=== PATIENT | female | born 2000 | race Caucasian/White ===

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

== ENCOUNTER 2021-05-30 20:34 | Emergency (ER) | payer BC, SELFPAY ==
[2021-05-30 20:40] VITALS: BP 144/87; PULSE 80; RESP 18; TEMP 36.9; O2SAT 96
--- NOTE | 2021-05-30 20:47 | W.ED.GENAD ---
Discharge Plan Disposition Patient Disposition: HOME Condition: Stable Discharge Details Clinical Impression: Nausea and vomiting Primary Care Provider: None,None ED Provider: Ehsan Mcintosh Home Meds and New Rx's Prescriptions: New ondansetron 4 mg tablet,disintegrating 4 mg PO Q8H PRN (Reason: nausea and vomiting) Qty: 30 RF: 0 capsaicin 0.1 % cream 1 applic topical TID Qty: 60 RF: 0 Continued Nexplanon 68 MG implant 68 mg SQ ONCE Qty: 1 RF: 0 acyclovir 400 mg Tablet 400 mg PO BID RF: 0 Discharge Instructions Instructions: Acute Nausea and Vomiting (ED) Additional Instructions: your blood work did not show any concerning findings your symptoms could be from the marijuana use and trying to stop using marijuana should help follow up with your primary care provider within 1 week especially if symptoms continue if you feel more ill, have severe worsening pain or persistent vomit return to the emergency department Medical Decision Making 21 yo female with no chronic medical problems, states she does use marijuana almost daily, comes in with nausea with vomit throughout the day. she states every few months she has periods with n/v but usually lasts a few hours. She denies other drug use and denies any chest or abdominal pain. She is stable on arrival intermittently dry heaving. She has a soft nontender abdomen. I suspect her symptoms are due to the marijuana use, will evaluate for electrolyte abnormalities and rehydrate, and treat with zofran and capsaicin cream. Will also check hcg. Given lack of abdominal pain and no tenderness anywhere on exam doubt surgical pathology and do not feel ct indicated. labs unremarkable, she feels mildly improved with zofran unfortunately we do not have any capsaicin left to try for her. She still has no abdominal tenderness and she is requesting d/c which I feel is reasonable given reassuring exam and labs. Advised to try and stop using marijuana and return precautions given Differential Diagnosis Differential Diagnosis: cannabinoid hyperemesis, cyclic vomit, electrolyte abnormality Lab Data Lab results reviewed: Yes I reviewed the patient's lab results. HPI General Mode of arrival: ambulatory. Date/Time Provider Initiated Documentation: 05/30/21 20:37. Limitations to Documentation: no limitations. Information obtained by: patient. History of Present Illness 21 year old F presents to the emergency department with the chief complaint of nausea and vomit, described as moderate, Patient started experiencing this day(s) (1) and it has been constant. No relieving factors improve symptom(s), No exacerbating factors reported . Patient notes no other symptoms.. Patient did receive the following treatments prior to arrival, none Related Data Home Medications Medication Instructions Recorded Confirmed Nexplanon 68 mg SQ ONCE #1 implant 02/28/17 05/30/21 acyclovir 400 mg PO BID 12/18/18 05/30/21 capsaicin 1 applic TOPICAL TID #60 g 05/30/21 ondansetron 4 mg PO Q8H PRN #30 tab 05/30/21 Previous Rx's Medication Instructions Recorded capsaicin 1 applic TOPICAL TID #60 g 05/30/21 ondansetron 4 mg PO Q8H PRN #30 tab 05/30/21 Allergies Allergy/AdvReac Type Severity Reaction Status Date / Time No Known Allergies Allergy Verified 05/30/21 20:42 General Stated Complaint: Nausea/Vomit/Diar PHILIPPE: 4 Review of Systems All systems reviewed & are unremarkable except as noted in HPI and below Constitutional Constitutional: Denies chills, Denies fever(s) and Denies weakness Cardiovascular Cardiovascular: Denies chest pain and Denies dyspnea Respiratory Respiratory: Denies cough and Denies dyspnea Gastrointestinal Gastrointestinal: Denies abdominal pain Musculoskeletal Musculoskeletal: Denies joint swelling Neurologic Neurologic: Denies weakness [facility] Active Problem List (Updated 05/30/21 @ 22:03 by Ehsan Mcintosh MD) Nausea and vomiting (Acute) UTI (urinary tract infection), uncomplicated (Acute) S/P ACL repair (Chronic) Presence of subdermal contraceptive device (Chronic 09/02/19) Acute gastroenteritis (Acute) Rupture of anterior cruciate ligament of right knee (Acute 09/17/17) Routine sports examination for healthy child or adolescent (Acute 01/20/16) Body mass index (BMI) of 5th to 84th percentile for age in childhood (Acute 02/28/17) Acute pain of right knee (Acute 08/06/17) Family History Mother No problems noted. Father No problems noted. Social History Smoking/Tobacco Use Status: Current every day Tobacco Type: e-cigarettes Smoking risk assessment performed?: Yes Alcohol Intake: never Drug use: Never Substance use type: does not use Do you feel safe at home: Yes Do you feel safe in your relationship?: Yes Exam Const General: no acute distress Orientation: alert HENMT Head: normal to inspection Ears: external ears normal General nose exam: external nose normal Mouth: moist mucous membranes Eyes General: appearance normal, both eyes and all related structures Neck Neck: normal visual inspection Resp Effort & Inspection: normal respiratory effort and able to speak in complete sentences Cardio Rate: regular rate GI Palpation: soft and nontender Skin General skin exam: no rashes or lesions noted Neuro General: patient alert and patient oriented x3 Extrem General: normal to inspection Psych Mental Status: mental status grossly normal Course Vital Signs Vital signs: Vital Signs Temperature 36.9 C 05/30/21 20:40 Pulse 80 05/30/21 20:40 Respiratory Rate 18 05/30/21 20:40 Blood Pressure 144/87 H 05/30/21 20:40 Pulse Oximetry 96 05/30/21 20:40 Temperature 36.9 C 05/30/21 20:40 Pulse 80 05/30/21 20:40 Respiratory Rate 18 05/30/21 20:40 Respiratory Effort Non-Labored 05/30/21 20:42 Blood Pressure 144/87 H 05/30/21 20:40 Blood Pressure Position Sitting 05/30/21 20:40 Pulse Oximetry 96 05/30/21 20:40 Oxygen Delivery Method Room Air 05/30/21 20:40 Oxygen Flow Rate 0 05/30/21 20:40
[2021-05-30] MEDS: Normal Saline 1,000 ML 1000 ML IV (21:15)
[2021-05-30] MEDS: Ondansetron 4 MG/2 ML VIAL IVP (21:22)
[2021-05-30 21:23] LABS: Abs Immature Grans 0.04 10^3/uL (0.0-0.06); Absolute Basophil Count 0.06 10^3/uL (0.0-0.2); Absolute Lymphocyte Count 0.73 10^3/uL (1.2-3.4); Absolute Monocyte Count 0.33 10^3/uL (0.1-0.8); Absolute Neutrophil Count 9.93 10^3/uL (1.2-6.7); Basophils % 0.5; HCT 40.2 % (36.0-46.0); HGB 13.1 g/dL (11.2-15.7); Immature Grans % 0.4; Lymphocytes % 6.6; MCH 30.3 pg (27.0-33.0); MCHC 32.6 % (32.0-36.0); MCV 93.1 fL (80-95); MPV 9.7 fL (8.0-11.0); Neutrophils % 89.5; Nucleated RBC 0 %; Platelet Count 319 10^3/uL (130-400); RBC 4.32 10^6/uL (3.93-5.22); RDW 12.7 % (11.7-14.6); RDW-SD 43.9 fL; WBC 11.09 10^3/uL (4.4-10.8)
[2021-05-30 21:49] LABS: ALT 22 U/L (14-59); AST 24 U/L (15-37); Albumin 5.1 g/dL (3.4-5.0); Alkaline Phosphatase 44 U/L (46-116); Anion Gap 11.7 mmol/L (3-11); BUN 10 mg/dL (7-18); Bilirubin, Total 0.5 mg/dL (0.2-1.0); CO2 25.3 mmol/L (21.0-32.0); CREATININE 0.7 mg/dL (0.55-1.02); Calcium 9.8 mg/dL (8.5-10.1); Chloride 103 mmol/L (98-107); Glucose 138 mg/dL (74-106); Magnesium 1.9 mg/dL (1.8-2.4); Sodium 140 mmol/L (136-145)
[2021-05-30 21:51] LABS: HCG Quant, Pregnancy < 1 mIU/mL (1-3)
[2021-05-30 21:57] LABS: Lipase 36 U/L (73-393)
[2021-05-30 22:17] VITALS: BP 144/87; PULSE 80; RESP 18; TEMP 36.9; O2SAT 96
== END 2021-05-30 22:10 | disposition home or self-care (01) ==
PROVIDERS: Emergency Provider Emergency Medicine
DX: R11.2 Nausea with vomiting, unspecified (principal); F12.90 Cannabis use, unspecified, uncomplicated
CPT/HCPCS: 36415; 80053; 83690; 96361; 96374; 99284; 83735; 84702; 85025; 99283; J2405

== ENCOUNTER 2022-02-10 13:36 | Emergency (ER) | payer BC, SELFPAY ==
[2022-02-10 13:40] VITALS: BP 140/84; PULSE 104; RESP 16; TEMP 37.2; O2SAT 97
[2022-02-10 14:41] LABS: Abs Immature Grans 0.04 10^3/uL (0.0-0.06); Absolute Basophil Count 0.03 10^3/uL (0.0-0.2); Absolute Lymphocyte Count 0.91 10^3/uL (1.2-3.4); Absolute Monocyte Count 0.75 10^3/uL (0.1-0.8); Absolute Neutrophil Count 9.23 10^3/uL (1.2-6.7); Basophils % 0.3; HCT 40.5 % (36.0-46.0); HGB 14.2 g/dL (11.2-15.7); Immature Grans % 0.4; Lymphocytes % 8.3; MCH 31.3 pg (27.0-33.0); MCHC 35.1 % (32.0-36.0); MCV 89 fL (80-95); MPV 9.2 fL (8.0-11.0); Monocytes % 6.8; Neutrophils % 84.2; Platelet Count 333 10^3/uL (130-400); RBC 4.54 10^6/uL (3.93-5.22); RDW 12.4 % (11.7-14.6); RDW-SD 40.7 fL; WBC 10.96 10^3/uL (4.4-10.8)
--- NOTE | 2022-02-10 14:47 | W.ED.GENAD ---
Discharge Plan Disposition Patient Disposition: HOME Condition: Improving Discharge Details Clinical Impression: Nausea and vomiting, Cannabinoid hyperemesis syndrome Primary Care Provider: RIAN ARIAS ED Provider: John Rider Home Meds and New Rx's Prescriptions: Continued Nexplanon 68 MG implant 68 mg SQ ONCE Qty: 1 Label Comments: 2017- followed by [facility]. Thanh,RN acyclovir 400 mg Tablet 400 mg PO BID ondansetron 4 mg tablet,disintegrating 4 mg PO Q8H PRN (Reason: nausea and vomiting) Qty: 30 0RF capsaicin 0.1 % cream 1 applic topical TID Qty: 60 0RF Rx Instructions: do not wash area for at least 30 min after application Discharge Instructions Instructions: Acute Nausea and Vomiting (ED) Additional Instructions: Take Zofran as needed for nausea and vomiting Refrain from marijuana use as it can exacerbate your symptoms Return earlier should you have new or worsening complaints Clear liquids and advance to bland diet as tolerated Discharge Data Discharge Date/Time-TO BE ENTERED AT DEPARTURE: 02/10/22 16:54 Medical Decision Making <KATLYN Laughlin - Last Filed: 02/14/22 16:27> Patient appears well, will check labs, give Zofran, and capsaicin cream, 1 L of normal saline and reassess Gap of 13.9, likely dehydration induced, potassium and mag within normal limits Will order 2 L of normal saline and sign out to John Rider pending reassessment Medical Records Medical records reviewed: Yes I reviewed the patient's medical records. Lab Data Lab results reviewed: Yes I reviewed the patient's lab results. <KATLYN Vizcarra - Last Filed: 02/10/22 16:39> Patient appears well, will check labs, give Zofran, and capsaicin cream, 1 L of normal saline and reassess Gap of 13.9, likely dehydration induced, potassium and mag within normal limits Will order 2 L of normal saline and sign out to John Rider pending reassessment 1530 John Rider PA-c I assumed care of this 22-year-old female from my colleague KATLYN Davis, please see her initial HPI and examination. At this time work-up completed, patient has responded well to Zofran and capsaicin cream and is receiving IV fluid. Anion gap slightly elevated at 13.9. Working diagnosis of cannabinoid hyperemesis. Patient received a total of 2 L IV fluid. Is tolerating p.o. intake without difficulty. Patient reports feeling well and is requesting to be discharged home. No active vomiting while under my care. Abdomen is soft, nontender. She is hemodynamically stable and I see no clear indication to repeat laboratory values progress time as her anion gap is only minimally elevated. Standard discharge and return precautions were provided. Patient understands, is agreeable to this plan, and has no additional questions or concerns upon discharge. This documentation was generated using [employer] system, please disregard any oddities of phrase or misspellings. Medical Records Medical records reviewed: Yes I reviewed the patient's medical records. Lab Data Lab results reviewed: Yes I reviewed the patient's lab results. Labs: Laboratory Tests Range/Units 02/10/22 02/10/22 14:30 14:30 WBC (4.4-10.8) 10^3/uL 10.96 H RBC (3.93-5.22) 10^6/uL 4.54 Hgb (11.2-15.7) g/dL 14.2 Hct (36.0-46.0) % 40.5 MCV (80-95) fL 89 MCH (27.0-33.0) pg 31.3 MCHC (32.0-36.0) % 35.1 RDW (11.7-14.6) % 12.4 Plt Count (130-400) 10^3/uL 333 MPV (8.0-11.0) fL 9.2 Immature Gran % 0.4 Neutrophils % 84.2 Lymphocytes % 8.3 Monocytes % 6.8 Eosinophils % 0.0 Basophils % 0.3 Nucleated RBC % (0.0-0.3) % 0.0 Absolute Neutrophils (1.2-6.7) 10^3/uL 9.23 H Absolute Lymphocytes (1.2-3.4) 10^3/uL 0.91 L Absolute Monocytes (0.1-0.8) 10^3/uL 0.75 Absolute Eosinophils (0.0-0.7) 10^3/uL 0.00 Absolute Basophils (0.0-0.2) 10^3/uL 0.03 Sodium (136-145) mmol/L 142 Potassium (3.5-5.1) mmol/L 3.6 Chloride (98-107) mmol/L 102 Carbon Dioxide (21.0-32.0) mmol/L 26.1 Anion Gap (3-11) mmol/L 13.9 H BUN (7-18) mg/dL 20 H Creatinine (0.55-1.02) mg/dL 0.8 Estimated GFR/1.73 m2 (mL/min/1.73m2) >= 60.00 Glucose (74-106) mg/dL 118 H Calcium (8.5-10.1) mg/dL 9.6 Magnesium (1.8-2.4) mg/dL 1.9 Total Bilirubin (0.2-1.0) mg/dL 0.5 AST (15-37) U/L 25 ALT (14-59) U/L 18 Alkaline Phosphatase (46-116) U/L 44 L Total Protein (6.4-8.2) g/dL 8.4 H Albumin (3.4-5.0) g/dL 5.1 H Lipase (73-393) U/L 26 HPI <KATLYN Laughlin - Last Filed: 02/14/22 16:27> General Date/Time Provider Initiated Documentation: 02/10/22 14:04. HPI Narrative: This 22-year-old female with history of cannabinoid hyperemesis presents with reports of vomiting for the past 3 days. She had a similar episode few months ago and was treated in [place] at that time. She denies any abdominal pain, chance of , fever or chills. She denies any chest pain or shortness of breath. She states her symptoms are similar to her prior episodes. She denies any blood in her vomitus. Denies any diarrhea. Has not attempted any oral antiemetics and did not have capsaicin cream. Related Data Home Medications Medication Instructions Recorded Confirmed etonogestrel 68 mg subdermal 68 mg SQ ONCE #1 implant 02/28/17 05/30/21 implant (Nexplanon) acyclovir 400 mg tablet 400 mg PO BID 12/18/18 05/30/21 capsaicin 0.1 % topical cream 1 applic topical TID #60 grams 05/30/21 ondansetron 4 mg disintegrating 4 mg PO Q8H PRN nausea and 05/30/21 tablet vomiting #30 tabs Previous Rx's Medication Instructions Recorded capsaicin 0.1 % topical cream 1 applic topical TID #60 grams 05/30/21 ondansetron 4 mg disintegrating 4 mg PO Q8H PRN nausea and 05/30/21 tablet vomiting #30 tabs Allergies Allergy/AdvReac Type Severity Reaction Status Date / Time No Known Allergies Allergy Verified 02/10/22 13:46 General Stated Complaint: Nausea/Vomit/Diar PHILIPPE: 3 Review of Systems <KATLYN Laughlin - Last Filed: 02/14/22 16:27> All systems reviewed & are unremarkable except as noted in HPI and below PFSH <KATLYN Laughlin - Last Filed: 02/14/22 16:27> All Active Problems (Updated 02/10/22 @ 15:20 by KATLYN Laughlin) Nausea and vomiting (Acute) Cannabinoid hyperemesis syndrome (Acute) UTI (urinary tract infection), uncomplicated (Acute) S/P ACL repair (Chronic) Presence of subdermal contraceptive device (Chronic 09/02/19) Acute gastroenteritis (Acute) Rupture of anterior cruciate ligament of right knee (Acute 09/17/17) Routine sports examination for healthy child or adolescent (Acute 01/20/16) Body mass index (BMI) of 5th to 84th percentile for age in childhood (Acute 02/28/17) Acute pain of right knee (Acute 08/06/17) Family History Mother No problems noted. Father No problems noted. Social History Smoking/Tobacco Use Status: Current every day Tobacco Type: e-cigarettes Smoking risk assessment performed?: Yes Alcohol Intake: never Drug use: Never Substance use type: marijuana Do you feel safe at home: Yes Do you feel safe in your relationship?: Yes Exam <KATLYN Laughlin - Last Filed: 02/14/22 16:27> Const General: cooperative, comfortable and no acute distress Resp Effort & Inspection: normal respiratory effort Auscultation: clear to auscultation bilaterally Cardio Rate: regular rate Rhythm: regular rhythm GI Inspection: normal to inspection Other: Nontender abdominal exam Skin General skin exam: no rashes or lesions noted Neuro General: patient alert and patient oriented x3 Extrem Other: Distal pulses intact Course <KATLYN Laughlin - Last Filed: 02/14/22 16:27> Vital Signs Vital signs: Vital Signs Temperature 37.2 C 02/10/22 13:40 Pulse 104 H 02/10/22 13:40 Respiratory Rate 16 02/10/22 13:40 Blood Pressure 140/84 02/10/22 13:40 Pulse Oximetry 97 02/10/22 13:40 Temperature 37.2 C 02/10/22 13:40 Temperature Source Skin 02/10/22 13:40 Pulse 104 H 02/10/22 13:40 Respiratory Rate 16 02/10/22 13:40 Respiratory Effort 02/10/22 13:44 Blood Pressure 140/84 02/10/22 13:40 Blood Pressure Position Sitting 02/10/22 13:40 Pulse Oximetry 97 02/10/22 13:40 Oxygen Delivery Method Room Air 02/10/22 13:40 Oxygen Flow Rate 0 02/10/22 13:40 Pain Level 0 02/10/22 13:40 Lab/Test Results Lab/Test Results: Laboratory Tests Range/Units 02/10/22 14:30 WBC (4.4-10.8) 10^3/uL 10.96 H RBC (3.93-5.22) 10^6/uL 4.54 Hgb (11.2-15.7) g/dL 14.2 Hct (36.0-46.0) % 40.5 MCV (80-95) fL 89 MCH (27.0-33.0) pg 31.3 MCHC (32.0-36.0) % 35.1 RDW (11.7-14.6) % 12.4 Plt Count (130-400) 10^3/uL 333 MPV (8.0-11.0) fL 9.2 Immature Gran % 0.4 Neutrophils % 84.2 Lymphocytes % 8.3 Monocytes % 6.8 Eosinophils % 0.0 Basophils % 0.3 Nucleated RBC % (0.0-0.3) % 0.0 Absolute Neutrophils (1.2-6.7) 10^3/uL 9.23 H Absolute Lymphocytes (1.2-3.4) 10^3/uL 0.91 L Absolute Monocytes (0.1-0.8) 10^3/uL 0.75 Absolute Eosinophils (0.0-0.7) 10^3/uL 0.00 Absolute Basophils (0.0-0.2) 10^3/uL 0.03 Sign Out <KATLYN Laughlin - Last Filed: 02/14/22 16:27> Sign Out Data: Sign Out Comment: pending 2nd LR, poc chal and dc Last updated by Jaja Davis PA at 02/10/22 15:39 PAWSS <KATLYN Laughlin - Last Filed: 02/14/22 16:27> Have you Been Recently Intoxicated or Drunk Within the Last 30 days?: No Have you Ever Experienced Previous Episodes of Alcohol Withdrawal?: No Have you ever Experienced Withdrawal Seizures?: No Have you ever Experienced Delirium Tremens(DT)s?: No Have you ever undergone Alcohol Rehabilitation Treatment (i.e, inpt ot outpatient treatment programs)?: No Have you ever Experienced Blackouts?: No Have you ever Combined Alcohol with any other Substance of Abuse during the last 90 days?: No Positive Blood Alcohol level on Presentation? [PCS.BAL]: No Evidence of Increased Autonomic Activity (i.e. HR>120, tremor, sweating, agitation, nausea)?: No Result: 0 <KATLYN Vizcarra - Last Filed: 02/10/22 16:39> Result: 0
[2022-02-10] MEDS: Lactated Ringers 1,000 ML 1000 ML IV ×2 (14:54→15:59)
[2022-02-10] MEDS: Ondansetron 4 MG/2 ML VIAL IVP (14:54)
[2022-02-10 15:20] LABS: ALT 18 U/L (14-59); AST 25 U/L (15-37); Albumin 5.1 g/dL (3.4-5.0); Alkaline Phosphatase 44 U/L (46-116); Anion Gap 13.9 mmol/L (3-11); BUN 20 mg/dL (7-18); Bilirubin, Total 0.5 mg/dL (0.2-1.0); CO2 26.1 mmol/L (21.0-32.0); CREATININE 0.8 mg/dL (0.55-1.02); Calcium 9.6 mg/dL (8.5-10.1); Chloride 102 mmol/L (98-107); Glucose 118 mg/dL (74-106); Lipase 26 U/L (73-393); Magnesium 1.9 mg/dL (1.8-2.4); Potassium 3.6 mmol/L (3.5-5.1); Sodium 142 mmol/L (136-145); Total Protein 8.4 g/dL (6.4-8.2)
[2022-02-10 15:34] VITALS: BP 131/74; PULSE 77; TEMP 36.6; O2SAT 98
[2022-02-10 16:45] VITALS: BP 113/69; TEMP 37.1; O2SAT 97
== END 2022-02-10 16:54 | disposition home or self-care (01) ==
PROVIDERS: Physician Assistant; Emergency Provider Physician Assistant; PCP Nurse Practitioner Family
DX: R11.2 Nausea with vomiting, unspecified (principal); F12.90 Cannabis use, unspecified, uncomplicated; F17.290 Nicotine dependence, other tobacco product, uncomplicated; R79.89 Other specified abnormal findings of blood chemistry
CPT/HCPCS: 36415; 80053; 81025; 83690; 96361; 96374; 99284; 83735; 85025; J2405

== ENCOUNTER 2022-10-18 15:15 | Outpatient (REF) | payer BC, SELFPAY ==
[2022-10-20 14:12] LABS: Chlamydia Result Negative (Negative); GC Result Negative (Negative)
== END 2022-10-18 15:16 | disposition home or self-care (01) ==
LOC: LBN 15:15
PROVIDERS: PCP Nurse Practitioner Family; Visit Provider Nurse Practitioner Women's Health
DX: Z11.3 Encounter for screening for infections with a predominantly sexual mode of transmission (principal)
CPT/HCPCS: 87491; 87591

== ENCOUNTER 2022-11-22 12:57 | Outpatient (REF) | payer BC, SELFPAY ==
--- NOTE | 2022-11-22 12:50 | PAPFT_PTH ---
PATIENT: Gio Gonzalez LOC: [facility] U#:[id number] AGE/SX: 22/F ROOM: RE11/22/[address]: Augusta Mcintosh NP : 2000 BED: DIS: 11/22/2022 SPEC #: [id number] RECD: 11/22/22 17:37 STATUS: DENA CARMICHAEL #: [id number] PARAG: 11/22/22 12:[address]: Augusta Mcintosh NP DEPT: [facility] Cytology RECD BY: Jaja Wall ENTERED: 11/22/22 17:38 SP TYPE: PAPFT OTHR DR: RIAN ARIAS NP Tissues: 1 - CX/ENDOCX FOR PAP SMEARS Procedures: PAP THIN PREP/[facility] Screening Comments: [id number]
== END 2022-11-22 12:58 | disposition home or self-care (01) ==
LOC: LBN 12:57
PROVIDERS: PCP Nurse Practitioner Family; Visit Provider Nurse Practitioner Women's Health
DX: Z12.4 Encounter for screening for malignant neoplasm of cervix (principal)
CPT/HCPCS: 88142